=== PATIENT | female | born 1995 | race Asian ===

== ENCOUNTER 2021-11-20 07:00 | Inpatient (IN) | payer OTHER ==
[2021-11-20] MEDS ORDERED: DEXTROSE 5%-LACTATED RINGERS 1,000 ML IV SCH (07:45)
[2021-11-20] MEDS ORDERED: BENZOCAINE 28 GM HEMORRHOIDAL OINTMENT TP PRN (07:47)
[2021-11-20] MEDS ORDERED: oxyCODONE HCL 5 MG TABLET PO PRN (07:47)
[2021-11-20] MEDS ORDERED: WITCH HAZEL 50% (TUCKS) 40 PAD/JAR PAD TP PRN (07:47)
[2021-11-20] MEDS ORDERED: BISACODYL 10 MG SUPP.RECT RC PRN (07:47)
[2021-11-20] MEDS ORDERED: BENZOCAINE 20% 57 GM BOTTLE TP PRN (07:47)
[2021-11-20] MEDS ORDERED: METHYLERGONOVINE MALEATE 0.2 MG/1 ML AMP IM PRN (07:47)
[2021-11-20] MEDS ORDERED: OXYTOCIN 20 UNITS in 0.9% NS 20 UNIT/1,000 ML INFUS.BAG IV SCH (08:00)
[2021-11-20] MEDS: IBUPROFEN 600 MG TABLET (FP) PO PRN ×4 (08:00→21:30)
[2021-11-20 08:45] LABS: BASO % 0.5 % (0-2.0); HEMATOCRIT 34.5 % (32.4-45.2); HEMOGLOBIN 11.6 GM/dL (10.7-15.3); LYMPH % 14.1 % (8-40); MCH 29.3 pg (25.7-33.7); MCHC 33.6 g/dl (32.0-36.0); MEAN CELL VOLUME 87.1 fl (80-96); MONO % 7.2 % (3.8-10.2); NEUT % 77.2 % (42.8-82.8); PLATELET COUNT 217 10^3/uL (134-434); RBC 3.97 M/mm3 (3.60-5.2); RDW 13.8 % (11.6-15.6); WHITE BLOOD COUNT 9.5 K/mm3 (4.0-10.0)
[2021-11-20 08:58] LABS: CALCIUM 8.9 mg/dL (8.5-10.1); INR 0.93 (0.83-1.09); PROTHROMBIN TIME (PATIENT) 10.7 SEC (9.7-13.0)
[2021-11-20 08:59] LABS: BLOOD UREA NITROGEN 8.7 mg/dL (7-18)
[2021-11-20 09:02] LABS: ACTIVATED PTT 27.1 SECONDS (25.2-36.5); CREATININE 0.5 mg/dL (0.55-1.3)
[2021-11-20 09:04] VITALS: BMI 28.3
[2021-11-20] MEDS: PRENATAL VITAMINS W/ FOLIC ACID TABLET (FP) PO SCH (09:18)
[2021-11-20] MEDS ORDERED: OXYTOCIN 20 UNITS in 0.9% NS 20 UNIT/1,000 ML INFUS.BAG IV ONE (09:49)
[2021-11-21] MEDS: IBUPROFEN 600 MG TABLET (FP) PO PRN ×3 (02:32→22:27)
[2021-11-21 08:49] LABS: BASO % 0.4 % (0-2.0); EOS % 1.5 % (0-4.5); HEMATOCRIT 31.5 % (32.4-45.2); HEMOGLOBIN 10.7 GM/dL (10.7-15.3); LYMPH % 19.4 % (8-40); MCH 29.6 pg (25.7-33.7); MCHC 33.8 g/dl (32.0-36.0); MEAN CELL VOLUME 87.6 fl (80-96); MEAN PLT VOLUME 9.1 fl (7.5-11.1); MONO % 7.2 % (3.8-10.2); NEUT % 71.5 % (42.8-82.8); PLATELET COUNT 218 10^3/uL (134-434); RDW 13.7 % (11.6-15.6); WHITE BLOOD COUNT 10.3 K/mm3 (4.0-10.0)
[2021-11-21] MEDS: ACETAMINOPHEN 325 MG TABLET (FP) PO PRN ×2 (09:24→16:59)
[2021-11-21] MEDS: PRENATAL VITAMINS W/ FOLIC ACID TABLET (FP) PO SCH (09:25)
[2021-11-21] MEDS ORDERED: FLU VACC QS2021-22(6MOS UP)/PF 60 MCG/0.5 ML SYRINGE IM ONE (10:00)
[2021-11-21] MEDS ORDERED: SENNOSIDES/DOCUSATE COMBO (SENNA PLUS) TABLET (UD) PO PRN (22:00)
[2021-11-22] MEDS: IBUPROFEN 600 MG TABLET (FP) PO PRN (05:57)
[2021-11-22] MEDS: PRENATAL VITAMINS W/ FOLIC ACID TABLET (FP) PO SCH (09:23)
[2021-11-22 12:46] VITALS: BP 131/83; PULSE 72; TEMP 98.4
== END 2021-11-22 12:45 | disposition home or self-care (01) | DRG 807 ==
LOC: JLDR 07:00 → J3W 10:05
PROVIDERS: ADMIT Obstetrics & Gynecology; ATTEND Obstetrics & Gynecology
PROC: 10E0XZZ Delivery of Products of Conception, External Approach (ICD-10-PCS; principal; 2021-11-20)
PROC: 0W8NXZZ Division of Female Perineum, External Approach (ICD-10-PCS; 2021-11-20)
DX: O80 Encounter for full-term uncomplicated delivery (principal); Z37.0 Single live birth; Z3A.38 38 weeks gestation of pregnancy
CPT/HCPCS: 36415; 59409; 80048; 85025; 85610; 85730; 86780; 86850; 86900; 86901; 90686; C9803-CS; G0008; U0003; U0005